=== PATIENT | male | born 1965 | race Caucasian/White ===

== ENCOUNTER 2016-09-30 19:31 | Inpatient (IN) | payer OTHER ==
[2016-09-30] MEDS ORDERED: FAMOTIDINE 20 MG/50 ML IVPB 50 ML IVPB ONE ×2 (21:36→23:06)
[2016-09-30] MEDS ORDERED: MAG HYDROX/AL HYDROX/SIMETH 30 ML UNIT-DOSE CUP PO ONE (21:36)
[2016-09-30] MEDS ORDERED: NITROGLYCERIN 2% OINTMENT - 1GM PACKET TD ONE ×2 (21:37→23:05)
[2016-09-30] MEDS ORDERED: MAG HYDROX/AL HYDROX/SIMETH 30 ML UNIT-DOSE CUP ONE (23:05)
[2016-09-30 23:25] LABS: BASOPHIL 0.3 % (0-2.0); EOSINOPHIL 0.1 % (0-4.5); MCHC 33.3 g/dl (32.0-35.9); MEAN CELL VOLUME 90.1 fl (80-96); MEAN PLT VOLUME 8.8 fl (7.5-11.1); NEUTROPHILS 86.6 % (42.8-82.8); PLATELET COUNT 249 K/MM3 (134-434); WHITE BLOOD COUNT 13.8 K/mm3 (4.0-10.0)
[2016-09-30 23:50] LABS: ALBUMIN 3.9 g/dl (3.4-5.0); ANION GAP 13 (8-16); BILIRUBIN,TOTAL 0.7 mg/dL (0.2-1.0); CALCIUM 9.2 mg/dL (8.5-10.1); CO2 26 mmol/L (21-32); COCKROFT - GAULT 124.21; CREATININE 0.9 mg/dL (0.7-1.3); GLUCOSE,RANDOM 197 mg/dL (74-106); SGOT/AST 40 U/L (15-37); SGPT/ALT 41 U/L (12-78); TOT PROT 7.8 g/dl (6.4-8.2)
[2016-09-30 23:53] LABS: ALK PHOS 87 U/L (45-117); TROPONIN I 0.26 ng/ml (0.00-0.05)
[2016-10-01] MEDS ORDERED: ASPIRIN 325 MG TABLET PO ONE (01:03)
[2016-10-01] MEDS ORDERED: ASPIRIN 325 MG TABLET ONE (01:04)
--- NOTE | 2016-10-01 01:39 | PDOC ---
History of Present Illness - General History Source: Patient Exam Limitations: No Limitations <Hang Farfan - Last Filed: 10/01/16 01:53> <Henrry Flores - Last Filed: 10/01/16 02:04> - General Chief Complaint: Pain Stated Complaint: CHEST PAIN Time Seen by Provider: 09/30/16 20:15 - History of Present Illness Initial Comments: 10/01/16 01:40 The patient is a 51 year old male, with a significant past medical history of HTN (stopped taking his meds 4 months ago), who presents to the emergency department with chest pain, nausea and abdominal pain onset today. He describes his chest pain as onset at 2pm today and bilateral in nature, rating it a 8/10 in severity. He notes that the pain radiates down his arms bilaterally. He denies taking anything for the pain. He reports that his nausea started a few hours after the chest pain and that the abdominal pain started 1 hour prior to presentation. He describes the abdominal pain as localized in the mid epigastric region, mild in severity, without radiation or modifying factors. He states that he had 2 alcoholic beers last night The patient denies shortness of breath, headache and dizziness. Denies fever, chills, vomit, diarrhea and constipation. Family history: Father; age 61 ([place]) Allergies: None Past surgical history: None reported Social history: Occasional alcohol use. No tobacco or drug use reported (Hang Farfan) Past History <Hang Farfan - Last Filed: 10/01/16 01:53> - Past Medical History HTN: Yes - Psycho/Social/Smoking Cessation Hx Suicidal Ideation: No Smoking History: Never smoked Information on smoking cessation initiated: No Hx Alcohol Use: No Drug/Substance Use Hx: No Substance Use Type: None <Henrry Flores - Last Filed: 10/01/16 02:04> - Past Medical History Allergies/Adverse Reactions: Allergies Allergy/AdvReac Type Severity Reaction Status Date / Time No Known Allergies Allergy Verified 09/30/16 23:24 Home Medications: Ambulatory Orders NK [No Known Home Medication] 09/30/16 Review of Systems - Review of Systems Able to Perform ROS?: Yes <Hang Farfan - Last Filed: 10/01/16 01:53> <Henrry Flores - Last Filed: 10/01/16 02:04> - Review of Systems Comments:: 10/01/16 01:40 CONSTITUTIONAL: No fever, no chills, no fatigue EYES: No visual changes ENT: No ear pain, no sore throat CARDIOVASCULAR: (+) Chest pain. No palpitations RESPIRATORY: No cough, no SOB GI: (+) Nausea and abdominal pain. No vomiting, no constipation, no diarrhea GENITOURINARY: No dysuria, no frequency, no hematuria MUSKULOSKELETAL: No backpain, no joint pain, no myalgias SKIN: No rash NEURO: No headache (Hang Farfan) *Physical Exam <Hang Farfan - Last Filed: 10/01/16 01:53> <Henrry Flores - Last Filed: 10/01/16 02:04> - Vital Signs Last Vital Signs Temp Pulse Resp BP Pulse Ox 98.2 F 80 18 162/85 98 09/30/16 19:44 09/30/16 19:44 09/30/16 19:44 09/30/16 19:44 09/30/16 19:54 - Physical Exam Comments: 10/01/16 01:41 CONSTITUTIONAL: Well-appearing; well-nourished; in no apparent distress HEAD: Normocephalic; atraumatic EYES: PERRL; EOM intact ENMT: External appears normal; normal oropharynx NECK: Supple; non-tender; no cervical lymphadenopathy CARD: (+) Reproducible bilateral chest wall tenderness. Normal S1, S2; no murmurs, rubs, or gallops RESP: Normal chest excursion with respiration; breath sounds clear and equal bilaterally; no wheezes, rhonchi, or rales ABD: (+) Mild epigastric pain. Soft, non-distended; no palpable organomegaly, no palpable hernias EXT: Normal ROM in all four extremities; non-tender to palpation; distal pulses intact SKIN: Warm, dry, no rash NEURO: No focal neurological deficiencies. (Hang Farfan) Heart Score/ECG Review - History History: Moderately suspicious - Electrocardiogram EKG: Non specific repolarization disturbance - Age Age: 45-65 - Risk Factors Risk Factors Heart Score: Yes Hx Hypertension Based on the list above the patient has:: 1-2 risk factors - Troponin Troponin: 1-3x normal limit - Score Heart Score - Total: 5 <Henrry Flores - Last Filed: 10/01/16 02:04> ED Treatment Course - LABORATORY CBC & Chemistry Diagram: 09/30/16 23:12 09/30/16 23:12 <AdolphHangdelaney Mlalorye - Last Filed: 10/01/16 01:53> - LABORATORY CBC & Chemistry Diagram: 09/30/16 23:12 09/30/16 23:12 <Henrry Flores - Last Filed: 10/01/16 02:04> - ADDITIONAL ORDERS Additional order review: Laboratory Results 09/30/16 23:12 Sodium 136 Potassium 4.2 Chloride 97 L Carbon Dioxide 26 Anion Gap 13 BUN 15 Creatinine 0.9 Creat Clearance w eGFR > 60 Random Glucose 197 H Calcium 9.2 Total Bilirubin 0.7 AST 40 H ALT 41 Alkaline Phosphatase 87 Creatine Kinase 132 Troponin I 0.26 H Total Protein 7.8 Albumin 3.9 Lipase 118 09/30/16 23:12 RBC 5.10 MCV 90.1 MCHC 33.3 RDW 13.0 MPV 8.8 Neutrophils % 86.6 H Lymphocytes % 9.9 Monocytes % 3.1 L Eosinophils % 0.1 Basophils % 0.3 - RADIOLOGY Radiology Studies Ordered: Category Date Time Status CHEST CTA [CT] Stat CT Scan 10/01/16 01:02 Taken CHEST PA & LAT [RAD] Stat Radiology 09/30/16 21:36 Completed - Medications Given in the ED: ED Medications Discontinued Medications Generic Name Dose Route Start Last Admin Trade Name Gloria PRN Reason Stop Dose Admin Al Hydroxide/Mg Hydroxide 30 ml 09/30/16 21:36 09/30/16 22:30 Mylanta Oral Suspension - PO 09/30/16 21:37 30 ml ONCE ONE Administration Aspirin 325 mg 10/01/16 01:03 10/01/16 01:08 Asa - PO 10/01/16 01:04 325 mg ONCE ONE Administration Famotidine/Sodium Chloride 50 mls @ 100 mls/hr 09/30/16 21:36 09/30/16 22:30 Pepcid 20 Mg Premixed Ivpb - IVPB 09/30/16 22:05 100 mls/hr ONCE ONE Administration Nitroglycerin 1 inch 09/30/16 21:37 09/30/16 22:30 Nitro-Bid 2% Paste - TD 09/30/16 21:38 1 inch ONCE ONE Administration Medical Decision Making <Hang Farfan - Last Filed: 10/01/16 01:53> <Henrry Flores - Last Filed: 10/01/16 02:04> - Medical Decision Making 10/01/16 02:00 Patient is a 51-year-old male with history of hypertension (noncompliant with his antihypertensive medication regimen) presents to the ER with atraumatic bilateral chest pain, sharp, partially pleuritic in nature, radiating to the upper extremities bilaterally. In the ER, patient is awake and alert, nontoxic- appearing, resting comfortably. Vital signs are noted. Physical examination reveals no discrepancy in blood pressure between extremities; distal pulses are equal and present bilaterally; EKG reveals normal sinus rhythm with T wave inversions and 3 and aVF on initial EKG. Repeat EKG shows pseudonormalization of the T-wave in lead aVL. Chest x-ray reveals no evidence of infiltrate or or effusion or cardiomegaly. First set of cardiac enzymes reveals a normal CPK but an elevated troponin. Will rule out patient for PE with a CTA. We'll administer Lovenox at 1 mg/kg and will admit to telemetry. (Henrry Flores) *DC/Admit/Observation/Transfer <Hang Farfan - Last Filed: 10/01/16 01:53> - Discharge Dispostion Admit: Yes <Henrry Flores - Last Filed: 10/01/16 02:04> Diagnosis at time of Disposition: Acute coronary syndrome, Cardiac enzymes elevated - Discharge Dispostion Decision to Admit order Date/Time: Decision to Admit Order Category Date Time Status Decision to Admit to Hospital Routine Admission 10/01/16 01:58 Ordered - Referrals Referrals: STAFF,NOT ON [Primary Care Provider] - - Attestations Scribe Attestion: 10/01/16 01:41 Documentation prepared by Hang Farfan, acting as medical assistant instructor for Henrry Flores MD (Hang Farfan) Physician Attestion: 10/01/16 01:59 The documentation was prepared by the scribe under my direct supervision. I have reviewed the documentation which correctly represents the findings, medical decision-making and critical action taken by me. (Henrry Flores)
[2016-10-01] MEDS ORDERED: ENOXAPARIN NA (PORCINE) 100 MG/1 ML DISP.SYRIN SQ ONE ×2 (01:49→03:00)
[2016-10-01] MEDS ORDERED: CLOPIDOGREL BISULFATE 300 MG TABLET PO ONE (03:19)
--- NOTE | 2016-10-01 03:23 | HP ---
CHIEF COMPLAINT: chest pain PCP: none HISTORY OF PRESENT ILLNESS: This is a 51 year old male with a past medical history of HTN (but does not take his medications regularly) who presented to the ED with chest pain since 2PM today. He states the pain was radiating down his arms bilaterally. He also reported epigastric pain which has since resolved. He states that the pain has improved significantly. ER course was notable for: (1) Trop 0.26 (2) ECG TWI lead 3, AVF (3) CTA neg for PE Recent Travel: pt denies PAST MEDICAL HISTORY: HTN PAST SURGICAL HISTORY: pt denies Social History: Smoking: pt denies Alcohol: " on weekends", had 2 beers last night Drugs: pt denies Family History: father , [place] age 61 mother alive and well brothers and sisters alive and well Allergies No Known Allergies Allergy (Verified 09/30/16 23:24) HOME MEDICATIONS: 3 Medication Instructions Recorded NK [No Known Home Medication] 09/30/16 REVIEW OF SYSTEMS CONSTITUTIONAL: Absent: fever, chills, diaphoresis, generalized weakness, malaise, loss of appetite, weight change HEENT: Absent: rhinorrhea, nasal congestion, throat pain, throat swelling, difficulty swallowing, mouth swelling, ear pain, eye pain, visual changes CARDIOVASCULAR: Present: chest pain Absent: syncope, palpitations, irregular heart rate, lightheadedness, peripheral edema RESPIRATORY: Absent: cough, shortness of breath, dyspnea with exertion, orthopnea, wheezing, stridor, hemoptysis GASTROINTESTINAL: Present: epigastric pain Absent: abdominal pain, abdominal distension, nausea, vomiting, diarrhea, constipation, melena, hematochezia GENITOURINARY: Absent: dysuria, frequency, urgency, hesitancy, hematuria, flank pain, genital pain MUSCULOSKELETAL: Absent: myalgia, arthralgia, joint swelling, back pain, neck pain SKIN: Absent: rash, itching, pallor HEMATOLOGIC/IMMUNOLOGIC: Absent: easy bleeding, easy bruising, lymphadenopathy, frequent infections ENDOCRINE: Absent: unexplained weight gain, unexplained weight loss, heat intolerance, cold intolerance NEUROLOGIC: Absent: headache, focal weakness or paresthesias, dizziness, unsteady gait, seizure, mental status changes, bladder or bowel incontinence PSYCHIATRIC: Absent: anxiety, depression, suicidal or homicidal ideation, hallucinations. PHYSICAL EXAMINATION Vital Signs - 24 hr 3 0609/30/16 10/01/16 10/01/16 19:44 19:54 03:00 03:42 Temperature 98.2 F 98.1 F Pulse Rate 80 74 Pulse Rate [ 70 Apical] Respiratory 18 18 20 Rate Blood Pressure 162/85 153/90 Blood Pressure 132/90 [Right Arm] O2 Sat by Pulse 98 98 96 97 Oximetry (%) GENERAL: Awake, alert, and fully oriented, in no acute distress. HEAD: Normal with no signs of trauma. EYES: Pupils equal, round and reactive to light, extraocular movements intact, sclera anicteric, conjunctiva clear. No lid lag. EARS, NOSE, THROAT: Ears normal, nares patent, oropharynx clear without exudates. Moist mucous membranes. NECK: Normal range of motion, supple without lymphadenopathy, JVD, or masses. LUNGS: Breath sounds equal, clear to auscultation bilaterally. No wheezes, and no crackles. No accessory muscle use. HEART: Regular rate and rhythm, normal S1 and S2 without murmur, rub or gallop. ABDOMEN: Soft, nontender, not distended, normoactive bowel sounds, no guarding, no rebound, no masses. No hepatomegaly or splenomegaly. MUSCULOSKELETAL: Normal range of motion at all joints. No bony deformities or tenderness. No CVA tenderness. UPPER EXTREMITIES: 2+ pulses, warm, well-perfused. No cyanosis. No clubbing. No peripheral edema. LOWER EXTREMITIES: 2+ pulses, warm, well-perfused. No calf tenderness. No peripheral edema. NEUROLOGICAL: Cranial nerves II-XII intact. Normal speech. Normal gait. PSYCHIATRIC: Cooperative. Good eye contact. Appropriate mood and affect. SKIN: Warm, dry, normal turgor, no rashes or lesions noted, normal capillary refill. Laboratory Results - last 24 hr 3 09/30/16 09/30/16 23:12 23:12 WBC 13.8 H RBC 5.10 Hgb 15.3 Hct 46.0 MCV 90.1 MCHC 33.3 RDW 13.0 Plt Count 249 MPV 8.8 Neutrophils % 86.6 H Lymphocytes % 9.9 Monocytes % 3.1 L Eosinophils % 0.1 Basophils % 0.3 Sodium 136 Potassium 4.2 Chloride 97 L Carbon Dioxide 26 Anion Gap 13 BUN 15 Creatinine 0.9 Creat Clearance w eGFR > 60 Random Glucose 197 H Calcium 9.2 Total Bilirubin 0.7 AST 40 H ALT 41 Alkaline Phosphatase 87 Creatine Kinase 132 Troponin I 0.26 H Total Protein 7.8 Albumin 3.9 Lipase 118 ECG: NSR, rate 74, QTC 455, TWI lead 3, aVF Imaging: CHEST PA LAT Clinical information: Chest pain. Chest x ray, PA and Lateral Comparison: No prior is available for comparison The cardiac silhouette is within normal limits in size. The lung is clear. Mediastinum and visualized osseous structures appear grossly intact . Impression Unremarkable examination without evidence of acute lung disease. EXAM: CHEST CTA THIS IS A PRELIMINARY REPORT FROM [facility] DATE OF SERVICE: 2016-10-01 01:21:25.0 IMAGES: [id number] HISTORY:Short of breath COMPARISON: None. TECHNIQUE: CT of the chest with serial axial images extending from the thoracic inlet to the level of the adrenals was performed following the intravenous administration of vascular contrast. MIP images were provided. FINDINGS:Heart: Normal Pericardium: Normal Thoracic aorta: Normal Superior vena cava and inferior vena cava colon normal Pulmonary arteries: Normal Thoracic esophagus: Normal Mediastinal lymph nodes are not enlarged. Central airways are normal. Lungs are clear without focal regions consolidation. There is no pneumothorax, or pleural effusion. Chest wall appears normal.. IMPRESSION: Normal chest ASSESSMENT/PLAN: 51yM with PMH HTN (poorly treated) who presented with chest pain. He has been admitted for further evaluation and treatment. Chest pain, ACS? - troponin 0.29, cont to trend - plavix load, lovenox 1mg / kg BID, start metoprolol - Nitropaste on with some relief of pain. - ASA given in ED, cont daily - lipitor 80mg - cardiology consult HTN - started on metoprolol DVT PPX - on full dose lovenox for ACS FEN - tolerating po - BMP in am with magnesium - regular diet Dispo: Pt currently requires inpatient management of his emergent condition. Visit type - Emergency Visit Emergency Visit: Yes ED Registration Date: 09/30/16 Care time: The patient presented to the Emergency Department on the above date and was hospitalized for further evaluation of their emergent condition. - New Patient This patient is new to me today: Yes Date on this admission: 10/01/16 - Critical Care Critical Care patient: No
[2016-10-01] MEDS ORDERED: ATORVASTATIN CA 80 MG TABLET (FP) PO SCH (03:30)
[2016-10-01 03:42] VITALS: BMI 30.8
[2016-10-01] MEDS: METOPROLOL TARTRATE 25 MG TABLET (FP) PO SCH ×2 (03:53→09:50)
[2016-10-01 06:00] LABS: BASOPHIL 0.2 % (0-2.0); EOSINOPHIL 0.1 % (0-4.5); MCH 30.4 pg (25.7-33.7); MCHC 33.7 g/dl (32.0-35.9); MEAN CELL VOLUME 90.2 fl (80-96); MEAN PLT VOLUME 8.7 fl (7.5-11.1); NEUTROPHILS 76.3 % (42.8-82.8); PLATELET COUNT 266 K/MM3 (134-434); RDW 13.1 % (11.9-15.9); WHITE BLOOD COUNT 11.2 K/mm3 (4.0-10.0)
[2016-10-01 06:38] LABS: TROPONIN I 3.04 ng/ml (0.00-0.05)
[2016-10-01 06:52] LABS: CALCIUM 9.3 mg/dL (8.5-10.1); COCKROFT - GAULT 121.66; CREATININE 0.9 mg/dL (0.7-1.3); MAGNESIUM 2.2 mg/dL (1.8-2.4); PHOSPHOROUS 3.4 mg/dL (2.5-4.9)
[2016-10-01 06:55] LABS: CHOLESTEROL 234 mg/dL (50-200); LDL CHOLESTEROL (ONLY SJRH) 162 mg/dL (5-100)
[2016-10-01] MEDS ORDERED: PT OWN MED DRAWER 7, Y5N ONE (09:34)
[2016-10-01] MEDS ORDERED: ENOXAPARIN NA (PORCINE) 100 MG/1 ML DISP.SYRIN SQ SCH (10:00)
[2016-10-01] MEDS ORDERED: ENOXAPARIN NA (PORCINE) 80 MG/0.8 ML DISP.SYRIN SQ SCH (10:00)
--- NOTE | 2016-10-01 10:29 | EKG ---
Test Reason : Blood Pressure : / mmHG Vent. Rate : 060 BPM Atrial Rate : 060 BPM P-R Int : 144 ms QRS Dur : 096 ms QT Int : 454 ms P-R-T Axes : 047 036 023 degrees QTc Int : 454 ms NORMAL SINUS RHYTHM NORMAL ECG WHEN COMPARED WITH ECG OF 01-OCT-2016 01:45, NO SIGNIFICANT CHANGE WAS FOUND Confirmed by DEBBIE SCHULTZ MD ([id number]) on 10/01/2016 10:29:19 AM Referred By: SHAAN HEMPHILL Confirmed By:DEBBIE CSHULTZ MD
--- NOTE | 2016-10-01 10:30 | EKG ---
Test Reason : Blood Pressure : / mmHG Vent. Rate : 079 BPM Atrial Rate : 079 BPM P-R Int : 148 ms QRS Dur : 098 ms QT Int : 390 ms P-R-T Axes : 062 029 018 degrees QTc Int : 447 ms NORMAL SINUS RHYTHM WITH SINUS ARRHYTHMIA NORMAL ECG NO PREVIOUS ECGS AVAILABLE Confirmed by DEBBIE SCHULTZ MD ([id number]) on 10/01/2016 10:30:12 AM Referred By: Confirmed By:DEBBIE SCHULTZ MD
[2016-10-01 12:11] LABS: TROPONIN I 6.97 ng/ml (0.00-0.05)
--- NOTE | 2016-10-01 12:17 | DS ---
Physical Exam: SUBJECTIVE: Patient seen and examined at bedside. Denies chest pain, chest pressure, palpitations, SOB. OBJECTIVE: Vital Signs Period Temp Pulse Resp BP Sys/Wall Pulse Ox Last 24 Hr 98.1 F-98.9 F 69-75 16-20 127-153/85-90 96-97 PHYSICAL EXAM GENERAL: The patient is awake, alert, and fully oriented, in no acute distress. HEAD: Normal with no signs of trauma. EYES: PERRL, extraocular movements intact, sclera anicteric, conjunctiva clear. LUNGS: Breath sounds equal, clear to auscultation bilaterally, no wheezes, no crackles, no accessory muscle use. HEART: Regular rate and rhythm, S1, S2 without murmur, rub or gallop. ABDOMEN: Soft, nontender, nondistended, normoactive bowel sounds, no guarding, no rebound, no hepatosplenomegaly, no masses. EXTREMITIES: 2+ pulses, warm, well-perfused, no edema. NEUROLOGICAL: Cranial nerves II through XII grossly intact. Normal speech, gait not observed. Laboratory Results - last 24 hr 10/01/16 10/01/16 10/01/16 05:30 05:30 05:30 WBC 11.2 H RBC 4.74 Hgb 14.4 Hct 42.7 MCV 90.2 MCHC 33.7 RDW 13.1 Plt Count 266 MPV 8.7 Neutrophils % 76.3 Lymphocytes % 16.9 D Monocytes % 6.5 D Eosinophils % 0.1 Basophils % 0.2 Sodium 135 L Potassium 4.3 Chloride 97 L Carbon Dioxide 26 Anion Gap 12 BUN 13 Creatinine 0.9 Random Glucose 226 H Calcium 9.3 Phosphorus 3.4 Magnesium 2.2 Creatine Kinase Creatine Kinase Index CK-MB (CK-2) CK-MB (CK-2) Rel Index Troponin I Triglycerides 301 H Cholesterol 234 H Total LDL Cholesterol 162 H HDL Cholesterol 33 L 10/01/16 10/01/16 10/01/16 05:30 05:30 11:10 WBC RBC Hgb Hct MCV MCHC RDW Plt Count MPV Neutrophils % Lymphocytes % Monocytes % Eosinophils % Basophils % Sodium Potassium Chloride Carbon Dioxide Anion Gap BUN Creatinine Random Glucose Calcium Phosphorus Magnesium Creatine Kinase 315 H D 456 H D Creatine Kinase Index 10.2 H* CK-MB (CK-2) 31.210 H CK-MB (CK-2) Rel Index Cancelled Troponin I 3.04 H* D 6.97 H* D Triglycerides Cholesterol Total LDL Cholesterol HDL Cholesterol HOSPITAL COURSE Date of Admission:10/01/16 Date of Discharge: 10/01/16 Pre hospital course This is a 51 year old male with a past medical history of HTN (but does not take his medications regularly) who presented to the ED with chest pain since 2PM today. He states the pain was radiating down his arms bilaterally. He also reported epigastric pain which has since resolved. He states that the pain has improved significantly. ER course was notable for: (1) Trop 0.26 (2) ECG TWI lead 3, AVF (3) CTA neg for PE (4) CXR unremarkable Subsequent hospital course Troponin elevation 0.26-->3.04-->6.97 Seen and evaluated by Dr. Benson. Will be transferred to [facility] for cardiac cath. Minutes to complete discharge: 35 Discharge Summary Reason For Visit: ACUTE CORONARY SYN ELEVATED CARDIAC ENZY Current Active Problems Acute coronary syndrome (Acute) Cardiac enzymes elevated (Acute) Condition: Stable - Instructions Referrals: STAFF,NOT ON [Primary Care Provider] - Disposition: TRANSFER ACUTE CARE/OTHER HOSP - Home Medications Comprehensive Discharge Medication List: Ambulatory Orders NK [No Known Home Medication] 09/30/16 This patient is new to me today: Yes Date on this admission: 10/02/16 Emergency Visit: Yes ED Registration Date: 10/01/16 Care time: The patient presented to the Emergency Department on the above date and was hospitalized for further evaluation of their emergent condition. Critical Care patient: No - Discharge Referral Referred to [facility] No
[2016-10-01 14:20] VITALS: BP 146/89; PULSE 79; TEMP 98.3
--- NOTE | 2016-10-01 15:16 | CON.CARD ---
Consult Consult Specialty:: cardiology Reason for Consultation:: NSTEMI - History of Present Illness Chief Complaint: chest pain History of Present Illness: 51 year old male with pmhx of htn but off meds last couple months who presents with chest pain. Denies any cardiac history or previous chest pain/dyspnea/or palpitations. No pnd, orthopnea, or edema. Yesterday, developed central chest pain 8/10 radiating to b/l arms not to his back around 2 pm which had persisted so daughter took him to ER at 7pm and pain relieved with nitro. No pain since. EKG unremarkable. CE's trending up with initial trop 0.2 and now 6 with CK 450s Currently symptom free. - History Source History Provided By: Patient, Family Member Limitations to Obtaining History: No Limitations - Past Medical History Cardio/Vascular: Yes: HTN - Past Surgical History Past Surgical History: Yes: None - Alcohol/Substance Use Hx Alcohol Use: Yes (1-2 beers weekend) - Smoking History Smoking history: Never smoked Have you smoked in the past 12 months: No Home Medications - Allergies Allergies/Adverse Reactions: Allergies Allergy/AdvReac Type Severity Reaction Status Date / Time No Known Allergies Allergy Verified 09/30/16 23:24 - Home Medications Home Medications: Ambulatory Orders NK [No Known Home Medication] 09/30/16 Vital Signs: Vital Signs Temperature 98.3 F 10/01/16 13:00 Pulse Rate 79 10/01/16 13:00 Respiratory Rate 18 10/01/16 13:00 Blood Pressure 146/89 10/01/16 13:00 O2 Sat by Pulse Oximetry (%) 97 10/01/16 09:50 Constitutional: Yes: No Distress Eyes: Yes: WNL HENT: Yes: WNL Neck: Yes: Supple Respiratory: Yes: CTA Bilaterally Gastrointestinal: Yes: Normal Bowel Sounds, Soft Cardiovascular: Yes: Regular Rate and Rhythm JVD: No Carotid Bruit: No Heart Sounds: Yes: S1, S2 Edema: No - Other Data Labs, Other Data: CBC, BMP 10/01/16 05:30 10/01/16 05:30 Troponin, BNP 10/01/16 10/01/16 05:30 11:10 Troponin I 3.04 H* D 6.97 H* D Troponin, BNP 10/01/16 10/01/16 05:30 11:10 Troponin I 3.04 H* D 6.97 H* D sinus rhythm at 66bpm, nl axis, nl st segments. Imaging - Results Chest X-ray: Report Reviewed EKG: Image Reviewed Problem List - Problems (1) Acute coronary syndrome Code(s): I24.9 - ACUTE ISCHEMIC HEART DISEASE, UNSPECIFIED Assessment/Plan 51 year old male with pmhx of htn but off meds last couple months who presents with chest pain. Denies any cardiac history or previous chest pain/dyspnea/or palpitations. No pnd, orthopnea, or edema. Yesterday, developed central chest pain 8/10 radiating to b/l arms not to his back around 2 pm which had persisted so daughter took him to ER at 7pm and pain relieved with nitro. No pain since. EKG unremarkable. CE's trending up with initial trop 0.2 and now 6 with CK 450s Currently symptom free. CXR unremarkable CT chest negative for PE. 1) NSTEMI -EKG unremarkable -Loaded on aspirin and plavix and started on enoxaparin for AC. -Continue aspirin 81mg and plavix 75mg daily. Continue enoxaparin but hold morning dose tomorrow for planned cardiac cath. Will f/u echocardiogram results Transfer to [facility] for cardiac cath. Telemetry unit Trend labs. Discussed benefits and risks of cardiac cath including but not limited to bleeding, infection, allergy, renal damage, heart attack, stroke, , and emergent surgery. Serial ekgs. Recurrent chest pain than call civil laboratory technician for urgent cath. On low dose metoprolol and will increase if needed Continue high dose statin. -Check A1C and tfts
--- NOTE | 2016-10-01 15:18 | EKG ---
Test Reason : Blood Pressure : / mmHG Vent. Rate : 066 BPM Atrial Rate : 066 BPM P-R Int : 144 ms QRS Dur : 092 ms QT Int : 422 ms P-R-T Axes : 048 053 028 degrees QTc Int : 442 ms NORMAL SINUS RHYTHM NORMAL ECG WHEN COMPARED WITH ECG OF 01-OCT-2016 08:58, NO SIGNIFICANT CHANGE WAS FOUND Confirmed by DEBBIE SCHULTZ MD ([id number]) on 10/01/2016 3:17:47 PM Referred By: LOUIE MORGAN Confirmed By:DEBBIE SCHULTZ MD
[2016-10-02] MEDS ORDERED: CLOPIDOGREL BISULFATE 75 MG TABLET (FP) PO SCH (10:00)
--- NOTE | 2016-10-04 15:40 | EKG ---
Test Reason : Blood Pressure : / mmHG Vent. Rate : 074 BPM Atrial Rate : 074 BPM P-R Int : 144 ms QRS Dur : 088 ms QT Int : 410 ms P-R-T Axes : 050 009 -07 degrees QTc Int : 455 ms NORMAL SINUS RHYTHM POSSIBLE LEFT ATRIAL ENLARGEMENT NONSPECIFIC ST ABNORMALITY ABNORMAL ECG NO PREVIOUS ECGS AVAILABLE Confirmed by MARIBELL ESQUIVEL, JOSE ([id number]) on 10/04/2016 3:40:01 PM Referred By: Confirmed By:JOSE REYNA MD
== END 2016-10-01 19:50 | disposition short-term general hospital (02) | DRG 190 ==
LOC: JER 19:31 → JERBED 10-01 01:58 → UNDOADMIN 10-01 02:12 → J4S 10-01 03:18
PROVIDERS: ADMIT Internal Medicine; ATTEND Nurse Practitioner Acute Care
DX: I21.4 Non-ST elevation (NSTEMI) myocardial infarction (principal); I24.9 Acute ischemic heart disease, unspecified; I10 Essential (primary) hypertension; I07.1 Rheumatic tricuspid insufficiency; Z91.14 Patient's other noncompliance with medication regimen
CPT/HCPCS: 36415; 71020-TC; 71275-TC; 80048; 80053; 80061; 82550; 82553; 83690; 83721; 83735; 84100; 84443; 84484; 85025; 93005; 93010; 93306-TC; 99285-25